=== PATIENT | male | born 1945 | race Caucasian/White ===

== ENCOUNTER 2018-03-12 16:17 | Inpatient (IN) | payer OTHER ==
[~2018-03-12] VITALS: Ht 160 cm; Wt 56.0 kg
[2018-03-12 16:28] VITALS: Ht 160 cm; Wt 56.0 kg
--- NOTE | 2018-03-12 16:57 | NUR ---
PATIENT CAME IN DUE TO CHEST PAIN X 3DAYS THAT HE STATES IS PRESSURE LIKE WITH SOB. DENIES RADIATING. PT AWAKE, ALERT, RESPIRATIONS EVEN AND UNLABORED, NO S/S OF ACUTE DISTRESS NOTED. PT STATES HAS BEEN DIZZY AT TIMES AND STATES PATIENT HAS FELL A COUPLE OF TIMES. SAFETY PRECAUTIONS IN PLACE
--- NOTE | 2018-03-12 17:04 | NUR ---
MEDICATED PER EMAR
[2018-03-12 17:24] LABS: BASOPHIL % 0.5 % (0-2); PLATELET COUNT 367 x10^3mcL (130-400); RED CELL DISTRIBUTION WIDTH 13.6 % (11.5-14.5)
[2018-03-12 17:36] LABS: ALKALINE PHOSPHATASE 91 U/L (46-116); ALT/SGPT 40 U/L (16-63); AST/SGOT 40 U/L (15-37); BILIRUBIN TOTAL 0.98 mg/dL (0.20-1.00); CALCIUM 7.5 mg/dL (8.5-10.1); CARBON DIOXIDE 23.4 mmol/L (21-32); CHLORIDE SERUM 96 mmol/L (98-107); GLUCOSE SERUM 145 mg/dL (74-106); POTASSIUM SERUM 4.5 mmol/L (3.5-5.1); SODIUM SERUM 129 mmol/L (136-145); TOTAL PROTEIN, SERUM 7.1 g/dL (6.4-8.2)
[2018-03-12 17:40] LABS: ALBUMIN 2.4 g/dL (3.4-5.0); CREATININE SERUM 5.7 mg/dL (0.7-1.3)
[2018-03-12 18:00] LABS: microscopic required? YES; urine erythrocyte 3+ (NEGATIVE)
--- NOTE | 2018-03-12 18:51 | NUR ---
PATIENT REMAINS FREE FROM S/S OF DISTRESS, RESPIRATIONS EVEN AND UNLABORED. SAFETY PRECAUTIONS IN PLACE. REPORT GIVEN TO DINO RN IN TELEMETRY . ALL QUESTIONS AND CONCERNS WERE ADDRESSED
[2018-03-12] MEDS ORDERED: DITROPAN XL5 MG PO (18:55)
[2018-03-12] MEDS ORDERED: FLOMAX0.4 MG PO (18:55)
[2018-03-12] MEDS ORDERED: BRILINTA90 M1 PO (18:56)
[2018-03-12] MEDS ORDERED: XARELTO10 M1 PO (18:56)
[2018-03-12] MEDS ORDERED: LIPITOR80 MG PO (18:57)
[2018-03-12] MEDS ORDERED: LASIX80 MG PO (18:57)
[2018-03-12] MEDS ORDERED: BENAZEPRIL HYDR20 M1 PO (18:58)
[2018-03-12] MEDS ORDERED: CARVEDILOL3.125 M1 PO (18:58)
[2018-03-12 19:04] LABS: AMPHETAMINE QUAL UR POSITIVE (See below)
[2018-03-12 19:07] LABS: MAGNESIUM 2.8 mg/dL (1.8-2.4)
[2018-03-12 19:08] LABS: CHOLESTEROL/HDL RATIO 3.5
--- NOTE | 2018-03-12 19:08 | NUR ---
ENDORSED CARE TO JUKE BOX SERVICER NURSE, ALL QUESTIONS AND CONCERNS WERE ADDRESSED.
[2018-03-12 19:17] LABS: PHOSPHOROUS 5.2 mg/dL (2.5-4.9)
--- NOTE | 2018-03-12 19:40 | NUR ---
RECEIVED PT FROM ER VIA [facility] ACCOMPANIED WITH NURSE, EMT AND PT'S FANILY, PT SEEN, ALERT AND ORIENTED, DENIES HEADACHE OR DIZZINESS, LUNG SOUNDS CLEAR BUT DIMINISHED AT BASE, SOB ON EXERTION, PT DE-SATS ON ROOM AIR WITH SPO2:88%, PLACED PT ON O2 2L VIA NC WITH SPO2:1005, ON AND OFF PRODUCTIVE COUGH, ON TELE#4 A-FIB WITH DEPRESSED T-WAVE, DENIES CHEST PAIN, PULSES PALPABLE, NO EDEMA NOTED, MILD GENERALIZED WEAKNESS, AMBULATORY WITH MINIMAL ASSIST, ABD SOFT AND FLAT WITH ACTIVE BS, NO BM AT THIS TIME, C/O OF BLOODY URINE AND FREQUENT URINATION, DR MCCAULEY MADE AWARE, PRIMARY NURSE ASIYA AT BEDSIDE, NO DISTRESS NOTED, WILL KEEP TO MONITOR.
[2018-03-12 19:45] VITALS: BP 93/62
--- NOTE | 2018-03-12 21:08 | NUR ---
INFORM DR. MCCAULEY REGARDING THE PT HAS A.FIB SINCE ARRIVE AND ALSO BLOODY URINE, ACCORDING TO PT STATEMENT. PT HAD TONY CATH IN [place] RECENTLY, AND AFTER TONY D/C THE START THE BLOODY URINE. DR. MCCAULEY MADE AWARE, WILL CONTINUE TO MONITOR THE PT.
[2018-03-13] VITALS (7 sets, daily range): BP systolic 90–139; BP diastolic 45–51
--- NOTE | 2018-03-13 05:16 | NUR ---
PT IS AWAKE BY TOUCH, DENY ANY RESPIRATORY DISTRESS, DENY ANY PAIN OR DISCOMFORT, IV AT LEFT AC, NO LEAKING, NO INFILTRATION. ALL ADLS ASSIST, ALL NEED MET, CALL LIGHT IN REACH, WILL CONTINUE TO MONITOR.
--- NOTE | 2018-03-13 05:46 | NUR ---
REPORT TO DR. MCCAULEY, REGARDING THE PT B/P IS LOW AT THIS MOMENT. B/P AROUND 90/45.AFTER MULTIPLE TRY. DR. MCCAULEY STATE THE PT HAS HX CHF. BUT WILL ORDER 500 ML N/S BOLUS. WILL CONTINUE TO MONITOR THE PT.
[2018-03-13 06:50] LABS: BASOPHIL % 0.8 % (0-2); PLATELET COUNT 363 x10^3mcL (130-400); RED CELL DISTRIBUTION WIDTH 13.7 % (11.5-14.5)
--- NOTE | 2018-03-13 07:00 | NUR ---
AFTER N/S 500 ML BOLUS, RECHECK B/P IS 104/47, MAP 65. INFORM DR. MCCAULEY. WILL CONTINUE TO MONITOR THE PT.
[2018-03-13 07:42] LABS: CALCIUM 7.6 mg/dL (8.5-10.1); CARBON DIOXIDE 23.1 mmol/L (21-32); CHLORIDE SERUM 100 mmol/L (98-107); GLUCOSE SERUM 108 mg/dL (74-106); MAGNESIUM 2.6 mg/dL (1.8-2.4); PHOSPHOROUS 4.5 mg/dL (2.5-4.9); POTASSIUM SERUM 4.4 mmol/L (3.5-5.1); SODIUM SERUM 132 mmol/L (136-145)
--- NOTE | 2018-03-13 08:00 | NUR ---
ALERT/ORIENTED TO PERSON AND TIME. TELE#4, A FIB; HR 39 TO 90'S; IRREGULAR. DENIED CHEST PAIN. B/P 104/47 AFTER NS BOLUS. BREATHING SOUND DIMINISHED HARDEEP; NO SOB. O2 SAT 98% ON RA. SOME PRODUCTIVE COUGHING W/ SMALL WHITE SPUTUM. IVHL'D PER ORDER. PATIENT VOID BLOODY URINE VIA URINAL, 50 - 75 CC EACH TIME. NO EDEMA TO BLE. BRUISE BELOW L GROIN AREA R/T PREVIOU SURGERY IN [facility]. AMBULATORY. DENIED PAIN. CALL LIGHT IN REACH.
--- NOTE | 2018-03-13 09:45 | NUR ---
DR. THORNE AND MEDICAL TEAM MADE MORNING ROUND. IVF OF NS 70CC/HR PER ORDER. DR. THORNE AWARE OF PATIENT B/P IMPROVED TO 104/47 AFTER 500CC OF NS IV BOLUS. VERBRAL ORDER TO HOLD ANTIHYPERTENSIVES AND D/C LASIX. RESIDENT WOULD BE FOLLOWED UP.
--- NOTE | 2018-03-13 10:05 | NUR ---
PER ORDER, TONY CATH 16 FR INSERTED. SCANT AMOUNTOF BLOODY URINE OUTPUT SEEN IN BAG.
--- NOTE | 2018-03-13 10:08 | NUR ---
ECHOCARDIOGRAM PENDING-DISCHARGED FROM [place] 03/09/18
--- NOTE | 2018-03-13 12:54 | NUR ---
Initial Nutrition Assessment- Dx: CP, SOB PMHx: DE w/ stent placement, CHF, Atrial Fibrillation, DM, BPH PSHx: Coronary stent placement Labs: Na 132 L, BG 108 H, BUN 70 H, CRE 5 H, Ca 7.6 L, HbA1c 6.6 H, Mg 2.6 H, WBC 16.2 H, H/H 9.6 L/28 L Meds: humulin, lactinex, lasix, norco, rocephin Diet: CCHO diet x 1 day PO Intake: 10% of breakfast per pt's report (negligible) Ht: 5'3 Wt: 123.8 lb, 56 kg BMI: 21.9 kg/m2 (normal) IBW: 124 lb, 56 kg %IBW: 100% UBW: 133 lbs Age: 72 yrs old Food Allergies: none Skin: ecchymosis to BUE. Ta: 19 Edema: no edema noted. GI: abd is soft and flat w/ active bowel sounds. Last BM 03/12/18 Trigger received for poor PO intake >3 days and pt appears underweight/malnourished. Pt w/ H/O recent DE w/ stent placement, newly diagnosed CHF, atr fibr and DM w/ c/o difficutly breathing while lying down at night. He has noted cough productive of white-yellowish sputum. Pt is pending cardio and nephro consult per MD notes 03/13. Pt seen resting in bed at time of RD visit. Pt reported of poor appetite and stated that he has been eating 75% less of his usual PO intake. For breakfast he only had a few bites of toast and few sips of coffee. Pt is not yet meeting optimal nutrition and would benefit from an addition of ONS in diet. Problem with: N/V/D/C: none Problems with: Chewing: none Swallowing: none Current appetite: poor Recent wt change: 10 lb wt loss in unknown timeframe %wt change: n/a Vitamin/Supplement use: none Special diet at home: Diabetic diet Physical activity: none Education: Pt declined education at this time. Estimated Nutritional Needs Based on actual body weight 56 kg Energy: 1400-1680kcal/d (25-30 kcal/kg-maintenance) Protein: 56-67 g/d (1-1.2 g/kg-Geriatric maintenance and preservation of lean body mass) Fluid: 2738-2447 ml/d (1 ml/kcal-fluid balance) or per doctor Nutrition Diagnosis Altered nutrition related labs related to endocrine dysfunction as evidenced by elevated BG and HbA1c lab values. Moderate malnutrition related to chronic illness as evidenced by 10# wt loss and 75% less PO intake. Intervention 1. Recommend: adding Glucerna BID for additional calories and protein. Oral nutritional supplement will provide: 440 kcal and 20 gm protein daily. 2. Encourage pt to increase PO intake. 3. If PO intake does not improve in 5-7 days, consider EN/TPN support. Monitor/Evaluate Goal: PO intake at least 75% of estimated needs Monitor: PO intake, Labs, GI function F/U in 2-3 days as high risk
--- NOTE | 2018-03-13 12:57 | NUR ---
1. Recommend: adding Glucerna BID for additional calories and protein. Oral nutritional supplement will provide: 440 kcal and 20 gm protein daily. 2. Encourage pt to increase PO intake. 3. If PO intake does not improve in 5-7 days, consider EN/TPN support.
--- NOTE | 2018-03-13 13:29 | NUR ---
B/P = 95/50, MAP = 65 ON SMALL CUFF. B/P 73/44, MAP [address] ESCALONA PAGED AND [place] SEND.
--- NOTE | 2018-03-13 13:37 | NUR ---
DR. Kemp SAW PATIENT AT BED SIDE.
--- NOTE | 2018-03-13 15:30 | NUR ---
DR. GARCIA CAME TO SEE PATIENT.
--- NOTE | 2018-03-13 15:40 | NUR ---
PATIENT ATTEMPTED TO PULL OUT TONY AND GO TO BATH ROOM. EDUCATED PATIENT DO NOT PULL OUT TONY. HELPED PATIENT TO USE BATH ROOM.
--- NOTE | 2018-03-13 18:00 | NUR ---
DR. PEDRO SAW PATIENT.
--- NOTE | 2018-03-13 18:10 | NUR ---
TONY IRRIGATION FAILED DUE TO BLOOD CLOTS. NEW TONY CATH CHANGED BY MAIDA AVILEZ.
--- NOTE | 2018-03-13 19:00 | NUR ---
PATIENT CALM AND CO-OP. CONFUSED AT TIME. TOLERATED DINNER. NO N/V. TONY OUT PLUSE VOID IN URINAL, TOTAL 575CC OF BLOODY URINE MEASURED. IVF OF 70CC/HR. ENDORSED CARE TO [facility] NURSE.
--- NOTE | 2018-03-13 19:45 | NUR ---
REPORT RECIEVED FROM DAY SHIFT RN. PATIENT WAS SEEN AND IS RESTING COMFORTABLY IN BED WITH SISTER AT BEDSIDE. PATIENT IS NO S/S OF DISTRESS OR SOB. PATIENT DENIES CHEST PAIN. PATIENT IS A/O X4. TELE #4. IV TO THE LAC WITH 70ML/HR. IV IS PATENT AND INTACT. LUNGS ARE DIMINSHED AND IS ON 2L NC. FC IN PLACE DRAINING BLOODY URINE. SAFETY MEAUSRES ARE MAINTAINED. BED IS IN THE LOWEST POSITION AND LOCKED. BED ALARM IS ON. SIDE RAILS ARE UP X2. INSTRUCTED PATIENT TO NOT GET OUT OF BED WITHOUT CALLING FOR ASSISTANCE. CALL LIGHT IS WITHIN REACH. WILL CONTINUE TO MONITOR PATIENT.
[2018-03-14] VITALS (7 sets, daily range): BP systolic 97–114; BP diastolic 49–81
--- NOTE | 2018-03-14 00:30 | NUR ---
PATIENT IS PULLING AT TONY CATHETER AND REMOVED STAT LOCK. REPLACED STAT LOCK. INSTRUCTED PATIENT TO NOT PULL OR REMOVED STAT LOCK AND TONY CATHETER. NO C/O OF PAIN, NO RESPIRATORY DISTRESS OR SOB NOTED. PATIENT IS COMFORTBALE IN BED. BED ALARM IS ON. CALL LIGHT IS WITHIN REACH. INSTRUCTED PATIENT TO CALL FOR ASSISTANCE AND TO NOT GET OUT OF BED ALONE. WILL CONTINUE TO MONITOR PATIENT.
--- NOTE | 2018-03-14 02:40 | NUR ---
NET SORTER REPORTED A 3-SEC-PAUSE. PT SLEEPING. EASILY AROUSABLE WITH VERBAL STIMULI. NO C/O CHEST PAIN. NO DISTRESS NOTED. DR SCHUMACHER MADE AWARE. NO NEW ORDERS AT THIS TIME.
--- NOTE | 2018-03-14 06:07 | NUR ---
PATIENT SLEEPING IN INTERVALS THROUGHOUT THE NIGHT. NO C/O OF PAIN. ON 2L NC O2. NO SOB OR DISTRESS NOTED. NONPRODUCTIVE COUGH PRESENT. IV TO THE LAC WITH NS RUNNING AT 70ML/HR. IV IS PATENT AND INTACT, NO REDNESS OR SWELLING NOTED. A/OX4, SOMETIMES FORGETFUL AND CONFUSED. REMINDED PATIENT TO NOT PULL OUT TONY CATHETER AND NC. TELE #17. GENERALIZE WEAKNESS. IRRIGATED TONY CATHETER Q4H WITH 50ML NS AND 50ML OUT NOTED EACH TIME. PATIENT TOLERATED WELL. NO COMPLAINT OF PAIN. SAFTEY MEASURE ARE MAINTAINED. PATIENT IS RESTING COMFORTABLY IN BED. BED IS IN THE LOWEST POSITION AND LOCKED. BED ALARM IN ON. CALL LIGHT IS WITHIN REACH. INSTRUCTED PATIENT THROUGHOUT THE SHIFT TO NOT GET OUT OF BED WITHOUT CALLING FOR ASSISTANCE. WILL ENDORSE CARE TO DAY SHIFT RN.
[2018-03-14 06:13] LABS: BASOPHIL % 1.3 % (0-2); PLATELET COUNT 368 x10^3mcL (130-400)
[2018-03-14 06:25] LABS: CALCIUM 7.7 mg/dL (8.5-10.1); CARBON DIOXIDE 20.3 mmol/L (21-32); CHLORIDE SERUM 105 mmol/L (98-107); CREATININE SERUM 3.8 mg/dL (0.7-1.3); GLUCOSE SERUM 95 mg/dL (74-106); MAGNESIUM 2.5 mg/dL (1.8-2.4); PHOSPHOROUS 4.2 mg/dL (2.5-4.9); POTASSIUM SERUM 4.5 mmol/L (3.5-5.1); SODIUM SERUM 138 mmol/L (136-145)
--- NOTE | 2018-03-14 07:45 | NUR ---
PATIENT RESTING IN BED. PATIENT IS A/OX4, WITH PERIODS OF CONFUSION. DENIES CHEST PAIN. NO SOB NOTED, ON 2L NS, 98% PULSE OX. TELE MONITOR IN PLACE. NS IV INFUSING TO LAC AT 70 ML/HR. IV SITE CDI, NO REDNESS, SWELLING, PAIN AT SITE. HEMATOMA NOTED TO LEFT UPPER EXTREMITY. PATIENT DENIES PAIN AT THIS TIME. CALL LIGHT WITHIN REACH. BED IN LOW POSITION, WILL CONTINUE TO MONITOR.
--- NOTE | 2018-03-14 09:50 | NUR ---
PATIENTS DAUGHTER NAN AT BEDSIDE, PATIENT UPDATE GIVEN WITH PATIENTS REQUEST. ALL QUESTIONS AND CONCERNS ADDRESSED. PATIENT RESTING COMFORTABLY IN BED. SAFETY PRECAUTIONS MAINTAINED.
--- NOTE | 2018-03-14 11:27 | NUR ---
[facility] [employer] CALLED STATED PT HAD 2.8 SEC PAUSE WITH HR 37. ASSESSED PT, DENIES CHEST PAIN, A/OX4, ANSWERING QUESTIONS APPROPRIATELY. ASSESSED VS, REPOSITION PT. DR SALDAÑA AT BEDSIDE AND MADE AWARE OF PT VS BP 97/49 MAP 65 HR 57 AND PT HAD A 2.8 SEC PAUSE. NO ORDERS RECEIVED. DR. SALDAÑA RECEIVED FAX FROM [facility], AND INFORM PT HE HAD STENT PLACE AND WILL CONTINUE [place]. WILL CARRY OUT ORDER NOW.
--- NOTE | 2018-03-14 11:35 | NUR ---
DR. PEDRO (BEEF GRINDER) AT BEDSIDE TO SPEAK WITH AND ASSESS PATIENT. PATIENTS DAUGHTER IN LAW AT BEDSIDE. DR. PEDRO INFORMED PATIENT KIDNEY FUNCTIONS ARE IMPROVING, WILL CONTINUE TO MONITOR, PATIENT WITH TONY CATH HEMATURIA NOTED. PER DR. PEDRO CONTINUE TONY IRRIGATION EVERY 6 HOURS, PATIENT WILL NEED TO FOLLOW UP WITH BEEF GRINDER OUTPATIENT ONCE DISCHARGED. PATIENT VERBALIZED UNDERSTANDING. ALL QUESTIONS AND CONERNS ADDRESSED.
--- NOTE | 2018-03-14 15:10 | NUR ---
NOTIFIED BY ROLL FORMING MACHINE OPERATOR THAT PT HR DROPPED TO 39 BPM. REASSESSED PT VS; BP 114/57 HR 65 MAP 68. PT A/OX4, DENIES CHEST PAIN AT THIS TIME. PT REPOSITIONED, LEGS ELEVATED. DR SALDAÑA AWARE. NO FURTHER ORDERS AT THIS TIME.
--- NOTE | 2018-03-14 19:15 | NUR ---
REPORT GIVEN TO FANNIE BEY AND LEONIDAS BEY, ALL QUESTIONS AND CONCERNS ADDRESSED, ALL CARES ENDORSED. PATIENT RESTING COMFORTABLY IN BED, NO DISTRESS NOTED. NO ACUTE CHANGES DURING SHIFT. SAFETY PRECAUTIONS MAINTAINED.
--- NOTE | 2018-03-14 19:35 | NUR ---
RECIEVED REPORT FROM DAY SHIFT RN. PATIENT WAS SEEN AND IS RESTING COMFORTABLY IN BED. PATIENT DENIES PAIN AT THIS TIME. NO C/O OF CHEST PAIN. PATIENT IS ON 2L NC. NO SOB OR DISTRESS NOTED. IV TO THE LAC WITH 70ML OF NS RUNNING. PATIENT HAS GENERALIZE WEAKNESS BUT IS ABLE TO AMBULATE. A/OX4. TONY CATHETER WITH LIGHT RED OUTPUT IS NOTED. ABRASIONS TO THE LEFT KNEE AND BRUSING TO THE LEFT INNER THIGH NOTED. INSTRUCTED PATIENT TO NOT GET UP WITHOUT ASSISTANCE. BED ALARM IS ON. SAFETY MEASURES ARE MAINTAINED. BED IS IN THE LOWEST POSITION AND LOCKED. SIDE RAILS AR UP X2. CALL LIGHT IS WITHIN REACH. WILL CONTINUE TO MONITOR PATIENT.
--- NOTE | 2018-03-15 01:17 | NUR ---
PATIENT IS ASLEEP AT THIS TIME. NO S/S OF DISTRESS OR SOB. SAFETY MEASURES ARE MAINTAINED. BED IS IN THE LOWEST POSITION AND LOCKED. BED ALARM IS ON. CALL LIGHT IS WITHIN REACH. WILL CONTINUE TO MONITOR.
--- NOTE | 2018-03-15 01:29 | NUR ---
TONY CATHETER IRRIGATED WITH 50ML OF NS. 50ML OUT WITH SUCCESS. NO BLOOD CLOTS NOTED. PATIENT TOLERATED WELL. NO PAIN ON IRRIGATION.
--- NOTE | 2018-03-15 03:30 | NUR ---
TONY CATHETER STAT LOCK CAME OFF. PATIENT STATED THAT HE DID NOT PULL IT OFF. HE SAID HE ACCIDENTLY MOVED HIS ARM AND IT CAME OFF. NEW STAT LOCK WAS PLACED WITH TONY CATHETER CARE. INSTRUCTED PATIENT TO BE CAREFUL OF HIS TONY CATHETER AND TO NOT PULL IT OUT. PATIENT VERBALIZED UNDERSTANDING. WILL CONTINUE TO MONITOR THE PATIENT.
[2018-03-15 05:58] VITALS: BP 124/60
--- NOTE | 2018-03-15 06:30 | NUR ---
TONY CATHETER IRRIGATED PER MD ORDER. IRRIGATED WITH 50ML NS WITH SUCCESS. 50 ML OUT WITH NO CLOTS NOTED. PATIENT TOLERATED WELL. NO PAIN NOTED. WILL ENDORSE TO DAY SHIFT RN.
--- NOTE | 2018-03-15 06:54 | NUR ---
PATIENT SLEPT IN INTERVALS THROUGHOUT THE NIGHT. PATIENT ON 2LNC. NO SOB OR DISTRESS NOTED. DENIES PAIN AT THIS TIME. IV TO THE LAC WITH NS RUNNING AT 70ML/HR. DENIES SOB AT THIS TIME. TONY CATHETER IS IN PLACE WITH LIGHT RED URINE OUTPUT. PATIENT IS RESTING COMFORTBALY IN BED. A/OX4. SAFTEY MEASURES ARE MAINTAINED. BED IS IN TH LOWEST POSITION AND LOCKED. BE ALARM IS ON. SIDE RAILS ARE UP X2. CALL LIGHT IS WITHIN REACH. INSTRUCTED PATIENT TO NOT PULL ON TONY CATHETER AND TO USE THE CALL LIGHT FOR ASSISTANCE. CALL LIGHT IS WITHIN REACH. WILL ENDORSE CARE TO DAY SHIFT RN.
[2018-03-15 07:00] LABS: BASOPHIL % 1.2 % (0-2); PLATELET COUNT 364 x10^3mcL (130-400)
--- NOTE | 2018-03-15 07:10 | NUR ---
RECEIVED PT FROM NOC MAIDA GRECO. PT AA/OX4, DROWSY BUT EASILY AROUSABLE TO VERBAL STIMULI. NO CHEST PAIN. NO SOB ON 2LNC. TONY IN TACT WITH RED URINE NOTED. FALL PREC. IN PLACE. BED ALARM ON. IV WNL TO LAC, NO REDNESS, NO SWELLING, NO INFILTRATION. IV FLUIDS FLOWING. PT CALM/COOPERATIVE. BED IN LOW POSITION. CALL LIGHT WITHIN REACH. WILL CONT. TO MONITOR.
[2018-03-15 07:12] LABS: CALCIUM 7.8 mg/dL (8.5-10.1); CARBON DIOXIDE 20.3 mmol/L (21-32); CHLORIDE SERUM 109 mmol/L (98-107); CREATININE SERUM 2.9 mg/dL (0.7-1.3); GLUCOSE SERUM 82 mg/dL (74-106); MAGNESIUM 2.5 mg/dL (1.8-2.4); PHOSPHOROUS 3.8 mg/dL (2.5-4.9); POTASSIUM SERUM 4.3 mmol/L (3.5-5.1); SODIUM SERUM 139 mmol/L (136-145)
--- NOTE | 2018-03-15 09:03 | NUR ---
PT AA/OX4, SPEECH GARBLED AT TIMES. RESPONDS TO VERBAL STIMULI, FACE SYMMETRICAL. FOLLOWS COMPLEX COMMANDS. NO S/S OF ACUTE DISTRESS. NO SOB ON 2LNC. PT CALM/COOPERATIVE LAYING IN BED. TONY IN TACT. IV WNL TO LAC, NO REDNESS, NO SWELLING, NO INFILTRATION. IV FLUIDS FLOWING. RESP. EVEN/UNLABORED. CHEST EXPANSION SYMMETIRCAL. FALL PREC. IN PLACE. BED IN LOW POSITION. CALL LIGHT WITHIN REACH. WILL CONTINUE TO MONITOR.
[2018-03-15 09:40] VITALS: BP 131/89
--- NOTE | 2018-03-15 11:04 | NUR ---
PT LAYING IN BED WITH HOB ELEVATED. DENIES PAIN. NO SOB ON 2LNC. PT CALM/COOPERATIVE. AA/OX4. FALL PREC. IN PLACE. BED ALARM ON. BED IN LOW POSITION. CALL LIGHT WITHIN REACH. WILL CONTINUE TO MONITOR.
[2018-03-15 13:04] VITALS: BP 123/65
--- NOTE | 2018-03-15 13:55 | NUR ---
1. Recommend adding Glucerna BID for additional calories. Oral nutritional supplement will provide additional 440 kcal and 20 gm protein daily.
--- NOTE | 2018-03-15 13:55 | NUR ---
Follow-up Nutrition Assessment- Dx: CP, SOB Labs: (03/15) BG 82 WNL (improved), BUN 40H, CRE 2.9 H, WBC 10.9 WNL (improved) Meds: humulin, lactinex, lasix, norco, rocephin Diet: CCHO diet x 3 days PO intake:(03/14)13% x 3 meals x 2 refusals - negligible; (03/15) 95% x 2 meals - (good-improved) Weights: (03/12) 123.8 lb Skin: dry scab to L knee, ecchymosis to RLE. Ta: 20 Edema: no edema noted. Last BM: 03/13/18; abd is soft, round and non-distended w/ active bowel sounds. Per RN, pt w/ generalized weakness and needs assistance to ambulate. Pt denied any abd pain, N/V. Pt's appetite is improving. Per providers note, pt is for discharge tomorrow. Estimated Nutritional Needs based on previous assessment: Energy: 4677-8813 kcal/d (25-30 kcal-maintenance) Protein: 56-67 g/d (1-1.2 g/kg-Geriatric maintenance and prevention of lean body mass losses) Fluid: 5374-4322 mL (1 mL/kcal or per MD order-for fluid balance and maintenance) Nutrition Diagnosis Altered nutrition related labs related to endocrine dysfunction as evidenced by elevated BG and HbAic lab values. (*improved) Moderate malnutrition related to chronic illness as evidenced by 10# wt loss and 75% less PO intake. Intervention 1. Recommend adding Glucerna BID for additional calories. Oral nutritional supplement will provide additional 440 kcal and 20 gm protein daily. Monitor/Evaluate Previous goal: PO intake at least 75% of estimated needs. Goal: PO intake at least 75% of estimated needs Monitor: PO intake, Labs, GI function F/U in 3-5 days as moderate risk (03/18-03/20)
--- NOTE | 2018-03-15 14:23 | NUR ---
BLADDER TRAINING COMPLETE. URINE OUTPUT 350CC FROM TONY, URINE DARK BOOGIE. TONY REMOVED. TOLERATED ACTIVITY WELL. DENIES PAIN. NO S/S OF 2LNC. NO CHEST PAIN. PT CALM/COOPERATIVE. INSTRUCTED PT TO USE CALL LIGHT TO CALL FOR ASSISTANCE BEFORE AMBULATING. PT VERBALIZED UNDERSTANDING. URINAL AT BEDSIDE. BED IN LOW POSITION. CALL LIGHT WITHIN REACH. BED ALARM ON. WILL CONT. TO MONITOR.
[2018-03-15 16:35] LABS: CALCIUM 7.6 mg/dL (8.5-10.1); CARBON DIOXIDE 20.3 mmol/L (21-32); CHLORIDE SERUM 107 mmol/L (98-107); CREATININE SERUM 2.6 mg/dL (0.7-1.3); GLUCOSE SERUM 104 mg/dL (74-106); POTASSIUM SERUM 4.6 mmol/L (3.5-5.1); SODIUM SERUM 136 mmol/L (136-145)
[2018-03-15 17:01] VITALS: BP 129/58
--- NOTE | 2018-03-15 18:51 | NUR ---
PT RESTING IN BED WITH BOTH EYES CLOSED. NO SOB ON 2LNC. RR EVEN/UNLABORED. NO CHEST PAIN. PT CALM/COOPERATIVE. BED IN LOW POSITION. CALL LIGHT WITHIN REACH. WILL ENDORSE TO ONCOMING SHIFT.
[2018-03-15 19:30] VITALS: BP 136/64
--- NOTE | 2018-03-15 19:30 | NUR ---
RECEIVED PT AWAKE ALERT AND VERBALLY RESPONSIVE WITH SISTER AT BEDSIDE.BREATHING EASY AND NON-LABORED WITH OCCASSIONAL PRODUCTIVE COUGHING.CRACKLES TO BUL ON AUSCULTATION.O2 SAT @ 99% 3L/NC.F/C DISCONTINUED TODAY AND ABLE TO VOID USING URINALS @ 200 ML DARK BOOGIE COLORED URINE.BEDALARM ON FALL PRECAUTION.CALLED DR. MCCAULEY AND ASKED FOR RT PROTOCOL.WILL CONTINUE TO MONITOR.
--- NOTE | 2018-03-16 04:43 | NUR ---
PT SLEPT WELL ALL NIGHT.BREATHING EASY AND NON-LABORED.O2 @ 3L/MIN VIA N/C.BREATHING TX GIVEN BY RT ORDERED.DENIES ANY PAIN OR DISCOMFORT.NO ASE NOTED FROM ROCEPHIN IV ATB.VOIDED TO 500 ML DARK BOOGIE COLORED URINE.NO HEMATURIA NOTED.ALL NEEDS MET.WILL CONTINUE TO MONITOR.
--- NOTE | 2018-03-16 05:37 | NUR ---
MORNING CARE RENDERED.CHANGED ALL LINENS AND GOWNS AND WELL TOLERATED.PLACED 02 @ 2L/MIN VIA N/C.WILL CONTINUE TO MONITOR.
[2018-03-16 06:25] LABS: BASOPHIL % 1.2 % (0-2); PLATELET COUNT 368 x10^3mcL (130-400); RED CELL DISTRIBUTION WIDTH 13.5 % (11.5-14.5)
[2018-03-16 06:27] VITALS: BP 113/54
[2018-03-16 07:21] LABS: CALCIUM 8.1 mg/dL (8.5-10.1); CARBON DIOXIDE 20.1 mmol/L (21-32); CHLORIDE SERUM 107 mmol/L (98-107); CREATININE SERUM 2.5 mg/dL (0.7-1.3); GLUCOSE SERUM 83 mg/dL (74-106); MAGNESIUM 2.4 mg/dL (1.8-2.4); PHOSPHOROUS 3.2 mg/dL (2.5-4.9); POTASSIUM SERUM 4.6 mmol/L (3.5-5.1); SODIUM SERUM 139 mmol/L (136-145)
[2018-03-16 09:09] VITALS: BP 118/64
--- NOTE | 2018-03-16 09:24 | NUR ---
PT AWAKE, ALERT, ORIENTED, DENIES PAIN, PRESSURE, SOB, NO S/S OF DISTRESS NOTED. IV SITE CDI AND PATENT. BED IN LOWEST POSITION, CALL LIGHT WITHIN REACH, 2 RAILS UP. SAFETY PRECAUTIONS IN PLACE
--- NOTE | 2018-03-16 10:14 | NUR ---
PT CURRENTLY RESTING WITH EYES CLOSED, RESPIRATIONS EVEN AND UNLABORED, NO S/S OF DISTRESS NOTED. SAFETY PRECAUTIONS IN PLACE.
[2018-03-16 11:37] VITALS: BP 118/64
--- NOTE | 2018-03-16 12:08 | NUR ---
PT AWAKE, ALERT, RESPIRATIONS REMAIN EVEN AND UNLABORED, NO S/S OF DISTRESS NOTED. SAFETY PRECAUTIONS IN PLACE. 02 SAT 100% ON ROOM AIR, WAS TAKEN OFF DURING ROUNDS
--- NOTE | 2018-03-16 12:35 | NUR ---
DISCHARGE INFORMATION PROVIDED TO PATIENT, PATIENT VERBALIZES UNDERSTANDING OF ALL DISCHARGE INFORMATION. ALL QUESTIONS AND CONCERNS WERE ADDRESSED, PATIENT DENIES HAVING QUESTIONS OR CONCERNS. AWAKE, ALERT, RESPIRATIONS EVEN AND UNLABORED, NO S/S OF DISTRESS NOTED. CURRENTLY SITTING. SAFETY PRECAUTIONS IN PLACE. PATIENT AWAITING PICKUP.
[2018-03-19 08:43] LABS: CK-BB 0 % (0); CK-MB 0 % (0-3); CK-MM 100 % (97-100); MACRO TYPE 1 0 % (Not Observed); MACRO TYPE 2 0 % (Not Observed)
== END 2018-03-16 14:05 | disposition home or self-care (01) | DRG 812 ==
LOC: ED 16:17 → DU 18:17
PROVIDERS: Emergency Medicine; Internal Medicine Nephrology; ADMIT Internal Medicine
DX: T43.621A Poisoning by amphetamines, accidental (unintentional), initial encounter (principal); I21.4 Non-ST elevation (NSTEMI) myocardial infarction; E43 Unspecified severe protein-calorie malnutrition; N17.0 Acute kidney failure with tubular necrosis; E11.65 Type 2 diabetes mellitus with hyperglycemia; I48.2 Chronic atrial fibrillation; I50.42 Chronic combined systolic (congestive) and diastolic (congestive) heart failure; I13.0 Hypertensive heart and chronic kidney disease with heart failure and stage 1 through stage 4 chronic kidney disease, or unspecified chronic kidney disease; D64.9 Anemia, unspecified; T83.098A Other mechanical complication of other urinary catheter, initial encounter; R31.9 Hematuria, unspecified; E83.41 Hypermagnesemia; F15.10 Other stimulant abuse, uncomplicated; F11.10 Opioid abuse, uncomplicated; E83.51 Hypocalcemia; Y83.8 Other surgical procedures as the cause of abnormal reaction of the patient, or of later complication, without mention of misadventure at the time of the procedure; I25.10 Atherosclerotic heart disease of native coronary artery without angina pectoris; N18.9 Chronic kidney disease, unspecified; F17.210 Nicotine dependence, cigarettes, uncomplicated; E87.1 Hypo-osmolality and hyponatremia; N40.0 Benign prostatic hyperplasia without lower urinary tract symptoms; I25.2 Old myocardial infarction; Z68.23 Body mass index [BMI] 23.0-23.9, adult; Z95.5 Presence of coronary angioplasty implant and graft; Y92.89 Other specified places as the place of occurrence of the external cause; Z79.84 Long term (current) use of oral hypoglycemic drugs
CPT/HCPCS: 82962; 83880; J0696; J7030; J7040; J7050; J7620; Q0092